=== PATIENT | female | born 1985 | race Hispanic/Latino ===

== ENCOUNTER 2017-03-18 06:08 | Emergency (ER) | payer BC ==
[2017-03-18 06:27] VITALS: BP 142/94; PULSE 88; RESP 20; TEMP 97.8; O2SAT 98
--- NOTE | 2017-03-18 06:34 | ED PDOC ---
HPI: SOB/CHF/COPD Time Seen by Provider: 03/18/17 06:21 Chief Complaint (Nursing): Respiratory Distress Chief Complaint (Provider): Cough History Per: Patient History/Exam Limitations: no limitations Associated Symptoms: denies: Fever Additional Complaint(s): 31 year old female, past medical history of asthma cough variant, presents to the ED with dry cough for the past 4 days. She reports that this is consistent with previous asthma exacerbations. She states that she took her xopenex, zyrtec, and singulair with little to no relief. She denies associated fevers. She reports that usual triggers for exacerbations are weather changes. No history of intubations or admission to ICU. Past Medical History Reviewed: Historical Data, Nursing Documentation, Vital Signs Vital Signs: Last Vital Signs Temp 97.8 F 03/18/17 06:23 Pulse 88 03/18/17 06:23 Resp 20 03/18/17 06:23 BP 142/94 H 03/18/17 06:23 Pulse Ox 98 03/18/17 08:44 - Medical History PMH: Asthma Other PMH: Eczema - Surgical History Other surgeries: Adenoidectomy, Tympanostomy tube placement - Family History Family History: States: No Known Family Hx - Social History Current smoker - smoking cessation education provided: No Ex-Smoker (has not smoked in the last 12 months): No Alcohol: None Drugs: Denies - Home Medications Home Medications: Ambulatory Orders Medication Instructions Recorded Albuterol HFA [Ventolin HFA 90 2 puff IH Q4H #1 puff 03/18/17 mcg/actuation (8 g)] Azithromycin [Zithromax] 250 mg PO DAILY #6 tab 03/18/17 Fluconazole [Diflucan] 150 mg PO ONCE #1 tab 03/18/17 predniSONE [predniSONE Tab] 10 mg PO TID #15 tab 03/18/17 - Allergies Allergies/Adverse Reactions: Allergies Allergy/AdvReac Type Severity Reaction Status Date / Time Sulfa (Sulfonamide Allergy RASH Verified 03/18/17 06:27 Antibiotics) Review of Systems Constitutional: Negative for: Fever Respiratory: Positive for: Cough, Shortness of Breath Physical Exam - Reviewed Nursing Documentation Reviewed: Yes Vital Signs Reviewed: Yes - Physical Exam Appears: Positive for: Non-toxic, No Acute Distress Head Exam: Positive for: ATRAUMATIC, NORMOCEPHALIC Skin: Positive for: Normal Color, Warm, Dry Eye Exam: Positive for: EOMI, Normal appearance, PERRL Neck: Positive for: Normal, Painless ROM, Supple Cardiovascular/Chest: Positive for: Regular Rate, Rhythm. Negative for: Murmur Respiratory: Positive for: Other (slightly diminished air entry bilaterally). Negative for: Wheezing, Respiratory Distress Gastrointestinal/Abdominal: Positive for: Normal Exam, Soft. Negative for: Tenderness Back: Positive for: Normal Inspection. Negative for: L CVA Tenderness, R CVA Tenderness, Other (midline tenderness) Extremity: Positive for: Normal ROM. Negative for: Pedal Edema, Deformity Neurologic/Psych: Positive for: Alert, Oriented. Negative for: Motor/Sensory Deficits - ECG O2 Sat by Pulse Oximetry: 98 Medical Decision Making Medical Decision Making: Impression: 31 year old female with persistent cough in setting of known asthma Plan: -Duoneb -Prednisone Scribe Attestation: Documented by Curtis Reynolds acting as a scribe for Mele Mehta MD. Scribe Attestation: All medical record entries made by the Scribe were at my direction and personally dictated by me. I have reviewed the chart and agree that the record accurately reflects my personal performance of the history, physical exam, medical decision making, and the department course for this patient. I have also personally directed, reviewed, and agree with the discharge instructions and disposition. Disposition - Clinical Impression Clinical Impression: Acute asthma exacerbation - Disposition Referrals: [facility] [Outside] Disposition: Transfer of Care Disposition Time: 07:00 Condition: FAIR Prescriptions: Albuterol HFA [Ventolin HFA 90 mcg/actuation (8 g)] 2 puff IH Q4H #1 puff Azithromycin [Zithromax] 250 mg PO DAILY #6 tab Fluconazole [Diflucan] 150 mg PO ONCE #1 tab predniSONE [predniSONE Tab] 10 mg PO TID #15 tab Instructions: Asthma (ED) Forms: [employer] ([place]) Patient Signed Over To: Cy Oglesby
[2017-03-18] MEDS ORDERED: Albuterol-Ipratrop 3 mg / 0.5 (3 ml) UD ONE (06:36)
[2017-03-18] MEDS ORDERED: Albuterol-Ipratrop 3 mg / 0.5 (3 ml) UD INH STA (06:36)
--- NOTE | 2017-03-18 08:44 | ED PDOC ---
- ECG O2 Sat by Pulse Oximetry: 98 - Progress Re-evaluation Time: 08:42 Condition: Improved Disposition - Clinical Impression Clinical Impression: Acute asthma exacerbation - POA Present On Arrival: None - Disposition Referrals: [facility] [Outside] Disposition: Routine/Home Disposition Time: 08:43 Condition: FAIR Prescriptions: Albuterol HFA [Ventolin HFA 90 mcg/actuation (8 g)] 2 puff IH Q4H #1 puff Azithromycin [Zithromax] 250 mg PO DAILY #6 tab predniSONE [predniSONE Tab] 10 mg PO TID #15 tab Instructions: Asthma (ED) Forms: [employer] (Irish)
== END 2017-03-18 08:54 | disposition home or self-care (01) ==
LOC: H.ER 06:08
DX: J45.901 Unspecified asthma with (acute) exacerbation (principal)